=== PATIENT | male | born 1985 | race Caucasian/White ===

== ENCOUNTER 2023-12-09 17:54 | Emergency (ER) | payer BC, SELFPAY ==
[2023-12-09 17:56] VITALS: BP 155/90
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
== END 2023-12-09 19:15 | disposition home or self-care (01) ==
LOC: EMR 17:54
PROVIDERS: EMERGENCY PHYSICIAN Emergency Medicine; FAMILY PHYSICIAN Family Medicine
DX: S05.12XA Contusion of eyeball and orbital tissues, left eye, initial encounter (principal); X58.XXXA Exposure to other specified factors, initial encounter; Q05.9 Spina bifida, unspecified; Z87.440 Personal history of urinary (tract) infections; Z98.2 Presence of cerebrospinal fluid drainage device
CPT/HCPCS: 99282

== ENCOUNTER 2023-12-26 19:57 | Emergency (ER) | payer BC, SELFPAY ==
[2023-12-26 20:01] VITALS: BP 126/81
[2023-12-26 20:15] LABS: Urine Albumin Negative (Neg - Trace); Urine Bilirubin Negative (Negative); Urine Character Slightly Cloudy (Clear); Urine Color Yellow; Urine Glucose Negative (Negative); Urine Ketone Negative (Negative); Urine Leukocyte 2+ (Negative); Urine Nitrite Positive (Negative); Urine Occult Blood Trace (Negative); Urine Specific Gravity 1.015 (<1.030); Urine Urobilinogen Negative (Neg - 1+)
[2023-12-26 20:24] LABS: Urine Bacteria Many (Negative); Urine Red Blood Cell 0-2 /HPF (0-2); Urine White Cell 16-20 /HPF (0-5)
[2023-12-26] MEDS: TORADOL 15 MG IV (21:19)
[2023-12-26] MEDS: NSS 500 IV (21:19)
[2023-12-26 21:27] LABS: % Basophils 0.5 % (0-2); % Eosinophils 3.1 % (0-6); % Immature Granulocytes 0.6 % (0-0.5); % Lymphocytes 38.5 % (20.5-51.1); % Monocytes 7.7 % (1.7-9.3); % Neutrophils 49.6 % (42.2-75.2); Absolute Eosinophils 0.2 10^3/uL (0-0.7); Absolute Lymphocytes 2.4 10^3/uL (1.2-3.4); Absolute Monocytes 0.5 10^3/uL (0.1-0.6); Absolute Neutrophils 3.1 10^3/uL (1.4-6.5); Hematocrit 30.5 % (39.0-52.0); Hemoglobin 10.9 g/dL (13.0-18.0); Mean Corp Hgb Conc. 35.7 g/dL (33.0-37.0); Mean Corpuscular Hgb 27.7 pg (27.0-31.0); Mean Corpuscular Volume 77.6 fL (80.0-94.0); Nucleated Red Blood Cells % 0 % (-); Platelet Count 238 10^3/uL (130-400); Red Blood Cell Count 3.93 10^6/uL (4.70-6.10); Red Cell Dist. Width 15.1 % (11.5-14.5); White Blood Cell Count 6.2 10^3/uL (4.8-10.8)
[2023-12-26 21:46] LABS: Blood Urea Nitrogen 16 mg/dl (9-20); Calcium 9.8 mg/dl (8.4-10.2); Carbon Dioxide 29 mmol/L (22-30); Chloride 102 mmol/L (98-107); Glucose 116 mg/dl (70-99); Potassium 4.2 mmol/L (3.5-5.1); Sodium 137 mmol/L (135-145); eGFR > 60.00
[2023-12-26] MEDS: DILAUDID 0.5 MG IV (22:26)
[2023-12-26] MEDS: MACROBID 100 MG PO (23:01)
--- NOTE | 2023-12-26 23:06 | ED.GENMED ---
History of Present Illness
General
Chief Complaint: Flank Pain
Source: patient and family
Exam Limitations: none
Time Seen by Provider: 12/26/23 20:25
Nursing documentation reviewed up to this point in time: agreed with
Travel History
Have you had any contact with someone who has COVID-19?: No
Do you have any symptoms of coronavirus? Fever > 100 degrees, chills, cough, shortness of breath, sore throat, loss of taste or smell, muscle aches, or headache?: No
History of Present Illness
History of Present Illness:
38-year-old male with past medical history of spina bifida with AIRCRAFT MAINTENANCE SUPERVISOR shunt and hydrocephalus, neurogenic bladder presenting to the emergency department today with concerns of urinary symptoms and left-sided flank pain over the past day and a half.
Denies any fevers nausea vomiting systemic symptoms. Denies any chest pain shortness of breath.
Past History
Past History
ED Past Medical History: Other (Spina bifida, hydrocephalus, UTIs, microscopic colitis) and Other (Sepsis secondary to UTI with E. coli ESBL May 2021)
ED Past Surgical History: Other (AIRCRAFT MAINTENANCE SUPERVISOR shunt, spinal surgery, hernia repair, prosthetic bladder sphincter)
Social History
Tobacco: Non-smoker
Alcohol: Occasional
Drug: None
Personal: Single
Living: with family
Employment: Employed
Family History
Family History: Other (Noncontributory)
Review of Systems
Review of Systems
Allergies reviewed?: Yes
All Other Systems: ROS reviewed and negative except as documented in HPI and ROS
Phy Exam
Physical Exam
Physical Exam:
GENERAL: Alert , in no apparent distress
EYE: pupils equal and reactive
NECK: Supple, no significant adenopathy.
ENT: o/p clr, mmm.
CARDIAC: Regular rate and rhythm .
LUNGS: Clear breath sounds bilaterally, no acute respiratory distress, no wheezes/rales/rhonchi
ABDOMEN: Soft, without focal tenderness, no r/g, no cvat
NEUROLOGICAL: Alert and oriented, no focal neuro deficits
SKIN: Warm and dry, skin intact.
MUSCULOSKELETAL: No edema, well perfused.
PSYCH: Normal and appropriate interaction.
Course
Orders/Labs/Results
Orders:
Orders
12/26/23 20:08
Urinalysis Reflex To Culture Urgent
Date Specimen was Collected: 12/26/23
Time Specimen was Collected: 20:04
Urine Microscopic Reflex Cult Urgent
Urine Culture Urgent
MARIE Source: U
Specimen Description:
Date Specimen was Collected: 12/26/23
Time Specimen was Collected: 20:04
12/26/23 21:00
0.9% Sodium Chloride 500 ml [Nss] 500 ml IV BOLUS
Ketorolac [Toradol] 15 mg IV NOW STA
12/26/23 21:01
CT Abd/pel Without Iv Or Oral Urgent
Comment:
Reason For Exam: left flank pain
12/26/23 21:21
Basic Metabolic Panel Urgent
Complete Blood Count/With Diff Urgent
12/26/23 22:23
HYDROmorphone [Dilaudid] 0.5 mg IV NOW STA
12/26/23 22:34
Nitrofurantoin Monohydrate [Macrobid] 100 mg PO NOW STA
Abnormal Lab Results
12/26/23 12/26/23
20:08 21:21
RBC 3.93 L 10^6/uL
(4.70-6.10)
Hgb 10.9 L g/dL
(13.0-18.0)
Hct 30.5 L %
(39.0-52.0)
MCV 77.6 L fL
(80.0-94.0)
RDW 15.1 H %
(11.5-14.5)
Immature Gran % 0.6 H %
(0-0.5)
Glucose 116 H mg/dl
(70-99)
Ur Occult Blood Reflex Trace A
(Negative)
Urine Nitrite (Reflex) Positive A
(Negative)
Leukocyte Esterase Rfl 2+ A
(Negative)
Urine WBC (Reflex) 16-20 A /HPF
(0-5)
Urine Bacteria (Reflex) Many A
(Negative)
12/26/23 21:21
12/26/23 21:21
Vital Signs
Initial and Last Documented VS:
Initial Vital Signs
Temp Pulse Resp BP Pulse Ox
98.1 F 69 18 126/81 99
12/26/23 20:01 12/26/23 20:01 12/26/23 20:01 12/26/23 20:01 12/26/23 20:01
Last Documented Vital Signs
Temp Pulse Resp BP Pulse Ox
98.1 F 62 16 130/75 99
12/26/23 20:01 12/26/23 23:45 12/26/23 23:45 12/26/23 23:45 12/26/23 23:45
MDM/Problems Addressed
MDM/Problems Addressed:
38-year-old male presenting to the emergency department today with concerns of left-sided flank pain and urinary symptoms over the past 2 days. Upon arrival vital signs are normal very minimal discomfort to the left flank area labs obtained without
acute abnormalities no white count urinalysis appears to be consistent with UTI CT scan was performed to rule out stone no signs of calculus or hydronephrosis. No acute abnormalities on CT scan. Plan for treatment of urinary tract infection.
Previous cultures indicating Macrobid as an appropriate medication patient was started on this medication but otherwise stable for outpatient management.
*Critical Care Note
Total Time (30-74mins, 75-104mins- exclusive of procedures): Not Applicable
ED Attending Note
-
Portions of this chart may have been created with voice recognition software.� Occasional wrong word or��sound alike� substitutions may have occurred due to the inherent limitations of voice recognition software.
Discharge Plan
Departure
Patient Disposition: Home (Routine Discharge)
Date of Disposition: 12/26/23
Time of Disposition: 23:07
Patient with high blood pressure during this ER visit?: No
Condition: Good
Covid-19: Not Applicable
Discharge Problem:
Acute UTI
Instructions: Urinary Tract Infection, Adult (DC)
Prescriptions:
New
nitrofurantoin monohyd/m-cryst [Macrobid] 100 mg capsule
100 mg PO Q12H 7 Days Qty: 14 0RF
tramadol 50 mg tablet
50 mg PO Q6H PRN (Reason: Pain) Qty: 7 0RF
No Action
lisinopril 10 MG tablet
10 mg PO DAILY
Viberzi 75 mg Tablet
75 mg PO DAILYPRN PRN (Reason: ibs symptoms)
Ubrelvy 50 mg Tablet
50 mg PO DAILYPRN PRN (Reason: migraines)
cetirizine [Zyrtec] 10 mg Tablet
10 mg PO DAILY
famotidine [Pepcid] 20 mg Tablet
20 mg PO DAILYPRN PRN (Reason: reflux)
dicyclomine 20 MG tablet
20 mg PO QIDPRN PRN (Reason: abdominal pain cramping)
alprazolam 0.25 mg tablet
0.25 mg PO Q6H PRN (Reason: ANXIETY)
Patient Comments:
12/27/2022: LAST FILLED 12/04/22, 20 TABS FOR 10 DAYS FROM [facility]#[id number]
ascorbic acid (vitamin C) [Vitamin C] 1,000 mg Tablet
1,000 mg PO DAILY
cyanocobalamin (vitamin B-12) [Vitamin B-12] 500 mcg Tablet
500 mcg PO DAILY
amoxicillin-pot clavulanate 875-125 mg Tablet
1 tab PO BID
Rx Instructions:
has two days left - did not take 03/13
ferrous sulfate 325 mg (65 mg iron) Tablet
325 mg PO DAILY
naproxen 500 mg tablet
500 mg PO BID PRN (Reason: mild pain)
tramadol 50 mg Tablet
50 mg PO BID PRN (Reason: moderate pain) Qty: 6 0RF
pantoprazole [Protonix] 40 mg tablet,delayed release (DR/EC)
40 mg PO DAILY Qty: 14 0RF
metoprolol succinate 25 mg Tablet Extended Release 24 Hr
25 mg PO DAILY
nitrofurantoin monohyd/m-cryst [Macrobid] 100 mg capsule
100 mg PO BID Qty: 14 0RF
sucralfate [Carafate] 1 gram tablet
1 g PO QID Qty: 60 0RF
cephalexin 500 mg capsule
500 mg PO BID 7 Days Qty: 14 0RF
pantoprazole [Protonix] 40 mg tablet,delayed release (DR/EC)
40 mg PO BID Qty: 30 0RF
tramadol 100 mg tablet
100 mg PO Q6H PRN (Reason: pain) Qty: 20 0RF
sulfamethoxazole-trimethoprim [Bactrim DS] 800-160 mg tablet
1 tab PO BID Qty: 14 0RF
tramadol 50 mg tablet
50 - 100 mg PO Q8H PRN (Reason: Pain) Qty: 10 0RF
sulfamethoxazole-trimethoprim [Bactrim DS] 800-160 mg tablet
1 tab PO Q12H Qty: 14 0RF
Referrals:
Harmeet Obregon MD [Family Provider] -
Activity Restrictions/Additional Instructions:
You came to emergency department today with concerns of flank pain and urinary symptoms. You are found to have a urinary tract infection. Please take Macrobid twice daily for the next 7 days. Follow-up very closely as an outpatient with a primary
care doctor or urologist for reassessment. Return to the emergency department immediately for any worsening, new or concerning symptoms.
Interventions
Interventions:
*Risk Screen - Suicide Last Done: 12/26/23 20:01
*General Assessment Last Done: 12/26/23 20:01
*Neglect/Abuse Screening Last Done: 12/26/23 20:01
ED- Fall Risk Assessment Last Done: 12/26/23 22:15
*ED COVID-19 Vaccine History Last Done: 12/26/23 20:01
*Nursing Disposition Last Done: 12/26/23 23:46
[place]-Cqogjo-Yygxcclqrq Assessment Last Done: 12/26/23 22:15
ED-Male Genitourinary Assessment Last Done: 12/26/23 22:15
Discharge Date and Time
Discharge Date/Time: 12/26/23 23:20
[2023-12-26 23:45] VITALS: BP 130/75
== END 2023-12-26 23:20 | disposition home or self-care (01) ==
LOC: EMR 19:57
PROVIDERS: Physician Assistant; Surgery; EMERGENCY PHYSICIAN Emergency Medicine; FAMILY PHYSICIAN Family Medicine
DX: N39.0 Urinary tract infection, site not specified (principal); Q05.9 Spina bifida, unspecified; N31.9 Neuromuscular dysfunction of bladder, unspecified; Z87.440 Personal history of urinary (tract) infections; Z98.2 Presence of cerebrospinal fluid drainage device
CPT/HCPCS: 99284; 96374; 96375; 96361; 74176; 80048; 81003; 81015; 85025; 87071; 87086; 87186

== ENCOUNTER 2024-01-24 07:55 | Emergency (ER) | payer BC, SELFPAY ==
[2024-01-24 07:57] VITALS: BP 106/66
[2024-01-24 08:59] VITALS: BMI 23.6
[2024-01-24] MEDS: TORADOL 15 MG IV (09:19)
--- NOTE | 2024-01-24 09:19 | ED.GENMED ---
Addendum entered and electronically signed by Lorraine Schofield PA-C 01/26/24 08:09:
Urine culture preliminarily E. coli, patient is on antibiotics, pending sensitivities
Original Note:
History of Present Illness
General
Chief Complaint: Flank Pain
Time Seen by Provider: 01/24/24 08:56
Travel History
Have you had any contact with someone who has COVID-19?: No
Do you have any symptoms of coronavirus? Fever > 100 degrees, chills, cough, shortness of breath, sore throat, loss of taste or smell, muscle aches, or headache?: No
History of Present Illness
History of Present Illness:
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 Yesterday. He reports
that over the weekend he was mountain biking and felt as though his foot felt strange but denies any falls or injuries. He is able to ambulate on the foot. States the left flank pain feels different from prior UTIs and pyelonephritis. Denies any
fevers or chills.
Past History
Past History
ED Past Medical History: Other (Spina bifida, hydrocephalus, UTIs, microscopic colitis) and Other (Sepsis secondary to UTI with E. coli ESBL May 2021)
ED Past Surgical History: Other (BINDING FOLDER MACHINE shunt, spinal surgery, hernia repair, prosthetic bladder sphincter)
Social History
Tobacco: Non-smoker
Alcohol: Occasional
Drug: None
Personal: Single
Living: with family
Employment: Employed
Family History
Family History: Other (Noncontributory)
Review of Systems
Review of Systems
Allergies reviewed?: Yes
All Other Systems: ROS reviewed and negative except as documented in HPI and ROS
Phy Exam
Physical Exam
Physical Exam:
GEN: Well appearing, NAD, WDWN
HEENT: Oral mucosa moist, no scleral icterus
Cardiac: Regular rate
Lung: No respiratory distress, no tachypnea
Abdomen: Left upper quadrant tenderness elicited on exam, no flank tenderness positive CVA tenderness elicited, no rigidity
MSK: Left foot appears atraumatic. There is mild swelling and erythema to the left first MTP joint with exquisite tenderness to palpation, no ankle swelling.
Skin: Good color, no pallor or jaundice, no rashes
Neuro: AO x3, moves all extremities freely
Psych: Calm, cooperative
Course
Orders/Labs/Results
Orders:
Orders
01/24/24 09:15
Ketorolac [Toradol] 15 mg .ROUTE .STK-MED ONE
01/24/24 09:18
Complete Blood Count/With Diff Urgent
Comprehensive Metabolic Panel Urgent
Lipase Urgent
Urinalysis Reflex To Culture Urgent
Date Specimen was Collected: 01/24/24
Time Specimen was Collected: 09:17
Urine Microscopic Reflex Cult Urgent
Urine Culture Urgent
MARIE Source: U
Specimen Description:
Date Specimen was Collected: 01/24/24
Time Specimen was Collected: 09:17
CR Foot - Left Min 3 Views Urgent
Comment:
Reason For Exam: foot pain
01/24/24 09:19
CT Abd/pel Without Iv Or Oral Urgent
Comment:
Reason For Exam: L flank pain
Ketorolac [Toradol] 15 mg IV NOW STA
Ketorolac [Toradol] 15 mg IV NOW STA
01/24/24 10:21
Oxycodone [Roxicodone] 5 mg PO NOW STA
Abnormal Lab Results
01/24/24
09:18
RBC 3.32 L 10^6/uL
(4.70-6.10)
Hgb 9.6 L g/dL
(13.0-18.0)
Hct 28.0 L %
(39.0-52.0)
RDW 15.5 H %
(11.5-14.5)
Sodium 133 L mmol/L
(135-145)
Glucose 102 H mg/dl
(70-99)
AST 16 L U/L
(17-59)
Ur Occult Blood Reflex 1+ A
(Negative)
Urine Nitrite (Reflex) Positive A
(Negative)
Leukocyte Esterase Rfl 2+ A
(Negative)
Urine WBC (Reflex) >100 A /HPF
(0-5)
Urine Bacteria (Reflex) Many A
(Negative)
01/24/24 09:18
01/24/24 09:18
Vital Signs
Initial and Last Documented VS:
Initial Vital Signs
Temp Pulse Resp BP Pulse Ox
98.3 F 79 18 106/66 99
01/24/24 07:57 01/24/24 07:57 01/24/24 07:57 01/24/24 07:57 01/24/24 07:57
Last Documented Vital Signs
Temp Pulse Resp BP Pulse Ox
98.3 F 80 18 118/78 99
01/24/24 07:57 01/24/24 10:59 01/24/24 10:59 01/24/24 10:59 01/24/24 10:59
MDM/Problems Addressed
MDM/Problems Addressed:
Patient with no evidence of UTI, flank pain is most likely due to pyelonephritis. No evidence of ureterolithiasis. The foot pain is potentially due to gout based on the location of the first MTP joint. Will start on colchicine for this. Versus
pyelonephritis the patient does have a complex history of ESBL's, I offered admission for IV antibiotics versus discharge on Bactrim which is sensitive medication in the past, he would prefer discharge on Bactrim., Not unreasonable given his
clinical stability at this time
*Critical Care Note
Total Time (30-74mins, 75-104mins- exclusive of procedures): Not Applicable
ED Attending Note
-
Portions of this chart may have been created with voice recognition software.� Occasional wrong word or��sound alike� substitutions may have occurred due to the inherent limitations of voice recognition software.
Discharge Plan
Departure
Patient Disposition: Home (Routine Discharge)
Date of Disposition: 01/24/24
Time of Disposition: 10:24
Patient with high blood pressure during this ER visit?: No
Discharge Problem:
Acute pyelonephritis, Acute gout of left foot
Instructions: Gout (DC), Kidney Infection (DC)
Prescriptions:
New
sulfamethoxazole-trimethoprim [Bactrim DS] 800-160 mg tablet
1 tab PO BID Qty: 20 0RF
oxycodone 5 mg tablet
5 mg PO Q8H PRN (Reason: Pain) Qty: 8 0RF
colchicine 0.6 mg tablet
0.6 mg PO DAILY Qty: 10 0RF
Rx Instructions:
1.2mg PO once, then 0.6mg PO 1hr after; continue 0.6mg daily prn pain
No Action
lisinopril 10 MG tablet
10 mg PO DAILY
alprazolam 0.25 mg tablet
0.25 mg PO Q6HPRN PRN (Reason: ANXIETY)
Patient Comments:
12/27/2022: LAST FILLED 12/04/22, 20 TABS FOR 10 DAYS FROM [facility]#[id number]
ferrous sulfate 325 mg (65 mg iron) Tablet
325 mg PO DAILY
metoprolol succinate 25 mg Tablet Extended Release 24 Hr
25 mg PO DAILY
tramadol 100 mg tablet
50 mg PO Q6HPRN PRN (Reason: moderate pain)
Referrals:
Harmeet Obregon MD [Family Provider] -
Interventions
Interventions:
*Risk Screen - Suicide Last Done: 01/24/24 09:02
*Neglect/Abuse Screening Last Done: 01/24/24 08:59
*Nursing Disposition Last Done: 01/24/24 11:00
QU-Nogsni-Iscjmutbtc Assessment Last Done: 01/24/24 08:59
ED-Male Genitourinary Assessment Last Done: 01/24/24 08:59
Discharge Date and Time
Discharge Date/Time: 01/24/24 11:02
Print Language: TAMAZIGHT
[2024-01-24 09:29] LABS: Urine Albumin Trace (Neg - Trace); Urine Bilirubin Negative (Negative); Urine Character Clear (Clear); Urine Color Yellow; Urine Glucose Negative (Negative); Urine Ketone Negative (Negative); Urine Leukocyte 2+ (Negative); Urine Nitrite Positive (Negative); Urine Occult Blood 1+ (Negative); Urine Urobilinogen Negative (Neg - 1+)
[2024-01-24 09:39] LABS: % Basophils 0.3 % (0-2); % Eosinophils 2.6 % (0-6); % Immature Granulocytes 0.5 % (0-0.5); % Monocytes 8.9 % (1.7-9.3); % Neutrophils 65.7 % (42.2-75.2); Absolute Eosinophils 0.2 10^3/uL (0-0.7); Absolute Lymphocytes 1.3 10^3/uL (1.2-3.4); Absolute Monocytes 0.5 10^3/uL (0.1-0.6); Absolute Neutrophils 3.8 10^3/uL (1.4-6.5); Hemoglobin 9.6 g/dL (13.0-18.0); Mean Corp Hgb Conc. 34.3 g/dL (33.0-37.0); Mean Corpuscular Hgb 28.9 pg (27.0-31.0); Mean Corpuscular Volume 84.3 fL (80.0-94.0); Mean Platelet Volume 9.4 fL (7.4-10.4); Nucleated Red Blood Cells % 0 % (-); Platelet Count 211 10^3/uL (130-400); Red Blood Cell Count 3.32 10^6/uL (4.70-6.10); Red Cell Dist. Width 15.5 % (11.5-14.5); White Blood Cell Count 5.7 10^3/uL (4.8-10.8)
[2024-01-24 09:43] LABS: ALT (SGPT) 19 U/L (0-50); AST (SGOT) 16 U/L (17-59); Albumin 4.3 g/dl (3.5-5.0); Alkaline Phosphatase 66 U/L (38-126); Blood Urea Nitrogen 13 mg/dl (9-20); Calcium 9.5 mg/dl (8.4-10.2); Carbon Dioxide 25 mmol/L (22-30); Chloride 105 mmol/L (98-107); Estimated Creatinine Clearance > 125 ml/min; Glucose 102 mg/dl (70-99); Lipase 34 U/L (23-300); Potassium 4.4 mmol/L (3.5-5.1); Sodium 133 mmol/L (135-145); Total Bilirubin 0.5 mg/dl (0.2-1.3); Total Protein 6.8 g/dl (6.3-8.2); eGFR > 60.00
[2024-01-24 09:53] LABS: Urine Bacteria Many (Negative); Urine Red Blood Cell 0-2 /HPF (0-2)
[2024-01-24 09:54] LABS: Urine Mucus Few; Urine White Cell >100 /HPF (0-5)
[2024-01-24] MEDS: ROXICODONE 5 MG PO (10:34)
[2024-01-24 10:59] VITALS: BP 118/78
== END 2024-01-24 11:02 | disposition home or self-care (01) ==
LOC: EMR 07:55
PROVIDERS: Physician Assistant; EMERGENCY PHYSICIAN Emergency Medicine; FAMILY PHYSICIAN Family Medicine
DX: N10 Acute pyelonephritis (principal); M10.9 Gout, unspecified; Z98.2 Presence of cerebrospinal fluid drainage device
CPT/HCPCS: 99285; 96374; 73630; 74176; 80053; 81003; 81015; 83690; 85025; 87077; 87086; 87186

== ENCOUNTER 2024-01-27 22:32 | Inpatient (IN) | payer BC, SELFPAY ==
[2024-01-27 16:01] VITALS: BP 104/60
[2024-01-27 16:13] LABS: % Basophils 0.5 % (0-2); % Eosinophils 2.9 % (0-6); % Immature Granulocytes 0.5 % (0-0.5); % Lymphocytes 29.4 % (20.5-51.1); % Monocytes 4.8 % (1.7-9.3); % Neutrophils 61.9 % (42.2-75.2); Absolute Eosinophils 0.2 10^3/uL (0-0.7); Absolute Lymphocytes 1.6 10^3/uL (1.2-3.4); Absolute Monocytes 0.3 10^3/uL (0.1-0.6); Absolute Neutrophils 3.4 10^3/uL (1.4-6.5); Hematocrit 29.7 % (39.0-52.0); Hemoglobin 10.2 g/dL (13.0-18.0); Mean Corp Hgb Conc. 34.3 g/dL (33.0-37.0); Mean Corpuscular Volume 84.4 fL (80.0-94.0); Mean Platelet Volume 9.4 fL (7.4-10.4); Nucleated Red Blood Cells % 0 % (-); Platelet Count 268 10^3/uL (130-400); Red Blood Cell Count 3.52 10^6/uL (4.70-6.10); White Blood Cell Count 5.5 10^3/uL (4.8-10.8)
[2024-01-27 16:32] LABS: ALT (SGPT) 20 U/L (0-50); AST (SGOT) 20 U/L (17-59); Albumin 4.7 g/dl (3.5-5.0); Alkaline Phosphatase 71 U/L (38-126); Blood Urea Nitrogen 26 mg/dl (9-20); Carbon Dioxide 24 mmol/L (22-30); Chloride 103 mmol/L (98-107); Glucose 168 mg/dl (70-99); Sodium 140 mmol/L (135-145); Total Bilirubin 0.5 mg/dl (0.2-1.3); Total Protein 7.2 g/dl (6.3-8.2); eGFR > 60.00
--- NOTE | 2024-01-27 20:47 | ED.GENMED ---
History of Present Illness
General
Chief Complaint: Abnormal Lab Value
Source: patient and records
Exam Limitations: none
Time Seen by Provider: 01/27/24 20:09
Nursing documentation reviewed up to this point in time: agreed with
Travel History
Have you had any contact with someone who has COVID-19?: No
Do you have any symptoms of coronavirus? Fever > 100 degrees, chills, cough, shortness of breath, sore throat, loss of taste or smell, muscle aches, or headache?: No
History of Present Illness
History of Present Illness:
38-year-old male with a past medical history of sciatica bifida, neurogenic bladder (self catheterizes), SUPERVISOR ACCOUNTS RECEIVABLE shunt who presents to the emergency department for evaluation of suprapubic pressure consistent with prior UTIs; he was called back because
of ESBL E. coli growing out on urine culture. Patient was seen 01/24/2024 in this emergency room with his typical UTI symptoms which include suprapubic pressure and some increased sensation of the need for self-catheterization�he catheterizes via
suprapubic tract. He was seen in the emergency room and started on Bactrim which he has been taking without any improvement in his symptoms. Today received a call that his urine culture grew back positive for ESBL E. coli and needed to come back
for IV antibiotics. Only new symptom in the interim is a subjective fever today although he says his temperature was normal he had subjective chills and fever.
Past History
Past History
ED Past Medical History: Other (Spina bifida, hydrocephalus, UTIs, microscopic colitis) and Other (Sepsis secondary to UTI with E. coli ESBL May 2021)
ED Past Surgical History: Other (SUPERVISOR ACCOUNTS RECEIVABLE shunt, spinal surgery, hernia repair, prosthetic bladder sphincter)
Social History
Tobacco: Non-smoker
Alcohol: Occasional
Drug: None
Personal: Single
Living: with family
Employment: Employed
Family History
Family History: Other (Noncontributory)
Review of Systems
Review of Systems
All Other Systems: ROS reviewed and negative except as documented in HPI and ROS
Constitutional: Reports fever, fatigue and chills
Respiratory: Denies trouble breathing
Cardiac: Denies chest pain
ABD/GI: Reports abdominal pain; Denies nausea or vomiting
: Reports frequency; Denies flank pain
Musculoskeletal: Denies neck pain or back pain
Neurological: Denies headache
Phy Exam
Physical Exam
Physical Exam:
General: Awake, alert, oriented x3; no acute distress
Head: Normocephalic, atraumatic
Eyes: Conjunctiva normal, sclera anicteric
Throat: Airway intact, handling secretions
Neck: Trachea midline, supple without meningismus
Lungs: Clear to auscultation bilaterally, no wheezing, rales, rhonchi
Heart: Regular rate and rhythm, no murmurs, gallops, or rubs
Abd: Soft, non distended, very mild suprapubic tenderness
Neuro: Cranial nerves grossly intact, speech fluid
Skin: no rash
Extremities: Warm and well-perfused
Scores
Heart Failure Risk
Heart Failure Risk Score: Not Applicable
Heart Score for Chest Pain Patients
STEMI patient?: Not applicable
Withdrawal Assessment of Alcohol
Withdrawal Assessment Completed?: Not applicable
Course
Orders/Labs/Results
Orders:
Orders
01/27/24 16:07
Complete Blood Count/With Diff Urgent
Comprehensive Metabolic Panel Urgent
01/27/24 20:32
INFECTIOUS DISEASE CONSULT Routine
Consulting Provider: Clau Tariq
Was physician already notified: Yes
01/27/24 20:33
Piperacillin/Tazo 3.375 Gram [Zosyn] 3.375 gram in 50 ml IV NOW
01/27/24 20:38
HYDROmorphone [Dilaudid] 1 mg IV NOW STA
01/27/24 20:45
Blood Culture Q30M
MARIE Source: Blood/Venous
Specimen Description:
01/27/24 21:15
Blood Culture Q30M
MARIE Source: Blood/Venous
Specimen Description:
Abnormal Lab Results
01/27/24
16:07
RBC 3.52 L 10^6/uL
(4.70-6.10)
Hgb 10.2 L g/dL
(13.0-18.0)
Hct 29.7 L %
(39.0-52.0)
RDW 15.0 H %
(11.5-14.5)
BUN 26 H mg/dl
(9-20)
Glucose 168 H mg/dl
(70-99)
01/27/24 16:07
01/27/24 16:07
Vital Signs
Initial and Last Documented VS:
Initial Vital Signs
Temp Pulse Resp BP Pulse Ox
36.9 C 71 16 104/60 98
01/27/24 16:01 01/27/24 16:01 01/27/24 16:01 01/27/24 16:01 01/27/24 16:01
Last Documented Vital Signs
Temp Pulse Resp BP Pulse Ox
36.9 C 71 16 104/60 98
01/27/24 16:01 01/27/24 16:01 01/27/24 16:01 01/27/24 16:01 01/27/24 16:01
MDM/Problems Addressed
Differential Diagnosis Includes:
UTI
MDM/Problems Addressed:
38-year-old male returns�diagnosed with UTI few days ago and called back due to resistant bacteria as above. Reviewed culture and sensitivity�urine culture positive for ESBL E. coli resistant to oral antibiotics. Sensitive to Zosyn we will place
an IV send labs, blood cultures and treat with IV Zosyn. Discussed with infectious disease for consultation. Discussed with hospitalist for admission.
Chronic conditions affecting care:
Spina bifida
*Pulse Oximetry
Patient hypoxic: no
*Critical Care Note
Total Time (30-74mins, 75-104mins- exclusive of procedures): Not Applicable
Data Reviewed
Review of Other/Old Records Reveals: Labs, Records, Testing (Urine culture) and Discharge Summary
Source: patient and records
Patient Management
Discussion with other providers: Hospitalist (Discussed with hospitalist) and Athletic Trainer (Discussed with infectious disease)
Escalation/DeEscalation of care consider admission/obs:
Admission indicated
ED Attending Note
-
Portions of this chart may have been created with voice recognition software.� Occasional wrong word or��sound alike� substitutions may have occurred due to the inherent limitations of voice recognition software.
Discharge Plan
Departure
Patient Disposition: Admit
Date of Disposition: 01/27/24
Time of Disposition: 20:52
Admit to doctor: Johanay
Presentation/result/management discussed w/ accepting MD/DO: Hospitalist
Discharge Problem:
Acute UTI
Prescriptions:
No Action
lisinopril 10 MG tablet
10 mg PO DAILY
alprazolam 0.25 mg tablet
0.25 mg PO Q6HPRN PRN (Reason: ANXIETY)
Patient Comments:
12/27/2022: LAST FILLED 12/04/22, 20 TABS FOR 10 DAYS FROM [id number]
ferrous sulfate 325 mg (65 mg iron) Tablet
325 mg PO DAILY
metoprolol succinate 25 mg Tablet Extended Release 24 Hr
25 mg PO DAILY
tramadol 100 mg tablet
50 mg PO Q6HPRN PRN (Reason: moderate pain)
sulfamethoxazole-trimethoprim [Bactrim DS] 800-160 mg tablet
1 tab PO BID Qty: 20 0RF
oxycodone 5 mg tablet
5 mg PO Q8H PRN (Reason: Pain) Qty: 8 0RF
colchicine 0.6 mg tablet
0.6 mg PO DAILY Qty: 10 0RF
Rx Instructions:
1.2mg PO once, then 0.6mg PO 1hr after; continue 0.6mg daily prn pain
Referrals:
Harmeet Obregon MD [Family Provider] -
Interventions
Interventions:
*Risk Screen - Suicide Last Done: 01/27/24 19:50
*General Assessment Last Done: 01/27/24 19:50
*Neglect/Abuse Screening Last Done: 01/27/24 19:50
*ED COVID-19 Vaccine History Last Done: 01/27/24 16:01
Discharge Date and Time
Print Language: QATARI
--- NOTE | 2024-01-27 20:54 | HPS.HSE ---
Family Physician
-
Family Physician: Harmeet Obregon
Chief Complaint
-
Drug Resistant UTI
History of Present Illness
Patient is a 38 y/o male with a past medical history of spina bifida, hypertension, neurogenic bladder (with self-catheterization every 3 hours), and prior urinary tract infections who presents for left flank pain that began on Saturday. He was
evaluated in the emergency department on Saturday and was prescribed Bactrim. Additionally, he was prescribed colchicine for gout in his left foot and states that this pain has resolved. He has been taking Bactrim as prescribed but denies an
improvement in the flank pain. Today he received a call from the hospital to inform him that the bacteria found in his urine culture is not susceptible to Bactrim with directions to return to the emergency department. He admits to intermittent
chills today but denies fever.
Medical History
Past Medical History
Past Medical History: Reports Other
Additional Past Medical History:
Spina Bifida with Hydrocephalus and Urinary Incontinence
Essential Hypertension
Past Surgical History: Reports Other
Additional Past Surgical History:
DIESEL PILE HAMMER OPERATOR Shunt (multiple revisions - last at 18yo)
Artificial Urinary Sphincter Placement (multiple)
Creation of Augmented Bladder (06/2019)
Inguinal Herniorrhaphies
Social History
Tobacco: Non-smoker
Alcohol: None
Family History
Family History: Not pertinent
Allergies / Home Medications
Allergies reflects when Allergies were last updated in [facility].
Home Medications with original date entered in [facility]
Allergy/Medication List:
Allergies
Allergy/AdvReac Type Severity Reaction Status Date / Time
latex Allergy rash, Verified 01/27/24 16:03
respiratory
Home Medications
lisinopril 10 mg tablet 10 mg PO DAILY Blood pressure 05/14/21
alprazolam 0.25 mg tablet 0.25 mg PO Q6HPRN PRN ANXIETY 12/27/22
ferrous sulfate 325 mg (65 mg iron) tablet 325 mg PO DAILY Supplement 03/13/23
metoprolol succinate 25 mg tablet,extended release 24 hr 25 mg PO DAILY 06/06/23
colchicine 0.6 mg tablet 0.6 mg PO DAILY #10 tabs 01/24/24
sulfamethoxazole 800 mg-trimethoprim 160 mg tablet (Bactrim DS) 1 tab PO BID #20 tabs 01/24/24
oxycodone 5 mg tablet 5 mg PO Q8H PRN moderate to severe pain 01/27/24
tramadol 50 mg tablet 50 mg PO Q8H PRN moderate pain 01/27/24
Review of Systems
-
A 12 point ROS was completed and negative except as noted: Yes
Constitutional: Reports Chills; Denies Fever
Respiratory: Denies Cough or Trouble Breathing
Cardiac: Denies Chest Pain or Palpitations
Physical Exam
Vital Signs
Vital Signs
Temp Pulse Resp BP Pulse Ox
98.5 F 71 16 104/60 98
01/27/24 16:01 01/27/24 16:01 01/27/24 16:01 01/27/24 16:01 01/27/24 16:01
Physical Exam
General: Well Developed, Well Nourished and No Apparent Distress
HEENT: NormoCephalic, Anicteric, Moist mucous membranes and Atraumatic
Respiratory: Clear and Non Labored Respirations
Cardiac: S1/S2 and Regular Rhythm; No Murmur
GI: Soft, Non Distended, Normal Bowel Sounds and Tender (Left upper quadrant)
Rectal: Deferred by Provider
Genito-urinary: Other (Left CVA Tenderness)
Musculoskeletal: No Clubbing, No Cyanosis and No Edema
Skin: Warm and Dry; No Rash
Neuro: Awake, Alert, Oriented and Nonfocal/grossly intact
Psych: Calm
Laboratory Results
-
01/27/24 16:07
01/27/24 16:07
Laboratory Results
Total Bilirubin 0.5 mg/dl (0.2-1.3) 01/27/24 16:07
AST 20 U/L (17-59) 01/27/24 16:07
ALT 20 U/L (0-50) 01/27/24 16:07
Alkaline Phosphatase 71 U/L (38-126) 01/27/24 16:07
Data Reviewed
-
Lab Data: Labs Reviewed by me
Old Records: Reviewed
Impression/Plan
-
Complicated Urinary Tract Infection secondary to ESBL E. Coli
-Consult Infectious Disease
-Continue Ertapenem
Chronic Urinary Retention secondary to Neurogenic Bladder
-Continue intermittent straight cath
Essential Hypertension
-Continue lisinopril and metoprolol
DVT proph: Lovenox
Code Status: Full Code
[2024-01-27 20:57] VITALS: BMI 23.5
[2024-01-27 20:58] VITALS: BP 122/78
[2024-01-27] MEDS: DILAUDID 1 MG IV (21:05)
[2024-01-27] MEDS: ZOSYN 50 IV (21:05)
--- NOTE | 2024-01-27 22:01 | W.PN.UPDATE ---
Update Note
Progress Note Update
This is an addendum to the H&P written by FABIANA Menchaca on 01/27/2024.
Patient seen and examined independently with OPTOMECHANICAL ENGINEER. 38-year-old male with history of spina bifida with CONSTRUCTION ECONOMIST shunt, neurogenic bladder status post surgery who self catheterizes, multidrug-resistant ESBL E. coli, Klebsiella presenting with left flank pain
and urinary frequency. He came to the ER 2 days ago and was treated with Bactrim however urine culture shows bacteria resistant to Bactrim. Urine culture shows ESBL E. coli once again. IV fluids, ertapenem, ID consulted.
[2024-01-27 22:52] VITALS: BMI 24.4
[2024-01-27 22:53] VITALS: BP 121/74
[2024-01-27] MEDS: INVANZ 60 MG IV (23:52)
[2024-01-28] MEDS: DILAUDID 1 MG IV ×3 (00:57→09:18)
[2024-01-28 06:21] LABS: Hematocrit 28.9 % (39.0-52.0); Mean Corp Hgb Conc. 34.6 g/dL (33.0-37.0); Mean Corpuscular Volume 83.8 fL (80.0-94.0); Mean Platelet Volume 9.4 fL (7.4-10.4); Platelet Count 244 10^3/uL (130-400); Red Blood Cell Count 3.45 10^6/uL (4.70-6.10); Red Cell Dist. Width 14.9 % (11.5-14.5); White Blood Cell Count 4.8 10^3/uL (4.8-10.8)
[2024-01-28 06:47] LABS: Blood Urea Nitrogen 23 mg/dl (9-20); Calcium 9.7 mg/dl (8.4-10.2); Carbon Dioxide 25 mmol/L (22-30); Chloride 106 mmol/L (98-107); Estimated Creatinine Clearance 91 ml/min; Glucose 92 mg/dl (70-99); Potassium 4.8 mmol/L (3.5-5.1); Sodium 139 mmol/L (135-145); eGFR > 60.00
[2024-01-28 07:51] VITALS: BP 96/51
--- NOTE | 2024-01-28 08:28 | W.PN.HOSP.TC ---
Today's Communication/Plan
-
IV Ertapenem
F/U further ID recs
Assessment / Plan
Assessment / Plan
Patient is a 38 y/o male with a past medical history of spina bifida, hypertension, neurogenic bladder (with self-catheterization every 3 hours), and prior urinary tract infections who presents for left flank pain that began on Saturday. He was
evaluated in the emergency department on Saturday and was prescribed Bactrim. Additionally, he was prescribed colchicine for gout in his left foot and states that this pain has resolved
Complicated Urinary Tract Infection secondary to ESBL E. Coli
-Consult Infectious Disease
-Continue Ertapenem
Chronic Urinary Retention secondary to Neurogenic Bladder
-Continue intermittent straight cath
Essential Hypertension
-Continue lisinopril and metoprolol
Hx Spina Bifida with PATIENT ACCESS REGISTRAR shunt
DVT proph: Lovenox
Code Status: Full Code
Anticipated Discharge: 24 - 48 hours
Subjective/Interval History
-
Date of Service: January 28, 2024
continues to have left flank pain
no fevers/chills
Objective Data
-
Labs:
Laboratory Results
01/28/24
06:01
WBC 4.8
Hgb 10.0 L
Hct 28.9 L
Plt Count 244
Sodium 139
Potassium 4.8
Chloride 106
Carbon Dioxide 25
BUN 23 H
Creatinine 1.0
Glucose 92
Calcium 9.7
Vital Signs:
Vital Signs
Temp Pulse Resp BP Pulse Ox
97.7 F 56 17 96/51 97
01/28/24 07:51 01/28/24 07:51 01/28/24 07:51 01/28/24 07:51 01/28/24 07:51
I&O
01/27/24 01/28/24 01/29/24
06:59 06:59 06:59
Intake Total 920 / 920
Output Total 150 / 150
Balance 770 / 770
Review of Systems
-
History Source: Patient
All other systems: Reviewed and negative
Physical Exam
-
General: No Apparent Distress
HEENT: Moist Mucous Membranes
Respiratory: Clear to Auscultation
Cardiac: Regular Rhythm and S1/S2
GI: Soft and Nondistended
Musculoskeletal: Other (left CVA)
Skin: Negative Rash
Neuro: AO x 3
Psych: Calm
Data Reviewed
-
Diagnostic Radiology: Report Reviewed by me
Labs: Labs Reviewed by me
[2024-01-28] MEDS: ZESTRIL PO (09:05)
[2024-01-28] MEDS: FEOSOL 325 MG PO (09:06)
[2024-01-28] MEDS: TOPROL XL PO (09:06)
--- NOTE | 2024-01-28 10:03 | CON.ID ---
Consultation
-
Date/Time Consultation Requested: January 27, 20242031
Date/Time Consultation Performed: January 28, 2024 1000
Requesting Provider: Dr. William Villareal
Performing Provider: Dr. Clau Tariq
Reason for Consultation: ESBL UTI
Chief Complaint / Past History
Chief Complaint
Flank pain
History of Present Illness
38-year-old male with spina bifida, history of augmented bladder construction under the umbilicus and patient self catheterizes every 3-4 hours, recurrent ESBL E. coli UTI who has had recent multiple ER visits for urinary symptoms. He recently
developed left flank pain and went to the ER on January 23. Urine specimen collected. He was discharged on Bactrim. However the culture resulted as ESBL E. coli. Patient received a phone call to come back to the hospital for IV antibiotic. He
received Zosyn in the ER. Today patient reports no fevers or chills this time. No nausea or vomiting. He continues to have left flank pain. He has never been on chronic oral antibiotic suppression in the past.
Past History
Additional Past Medical History:
Spina bifida.
Hydrocephalus status post HEALTH SPA MANAGER shunt.
Hypertension.
Urinary incontinence with history of multiple artificial ureteral sphincters with subsequent removal.
Hx of augmented bladder construction under the umbilicus (2018) and patient self catheterizes.
Hernia repair.
Hypertension.
Recurrent ESBL- E. coli UTI
ESBL-Ecoli bacteremia x 2
Allergy History:
latex Allergy (Verified 01/27/24 16:03)
rash, respiratory
Medications Reviewed: Yes
Current Antibiotics:
Zosyn
Social History
Tobacco: Non-Smoker
Alcohol: None
Drug: None
Family History
Family History: Not Pertinent
Review of Systems
Review of Systems
General: Negative Fever, Chills or Change in Appetite
HEENT: Negative Headache or Pharyngitis
Respiratory: Negative Dyspnea or Cough
Genital / Urological: Flank Pain
Endocrine: Negative Weakness
Skin / Hair / Nails: Negative Rash
Neurological: Negative Headache or Dizziness
Vital Signs
Temp Pulse Resp BP Pulse Ox
97.7 F 56 17 96/51 97
01/28/24 07:51 01/28/24 09:06 01/28/24 07:51 01/28/24 09:06 01/28/24 07:51
Physical Exam
Physical Exam
Constitutional: No Acute Distress and Comfortable
Cardiovascular: Regular Rate and S1/S2
Pulmonary: Clear
Gastrointestinal: Soft, Non Tender, Non Distended and Normal Bowel Sounds
Genito-Urinary: Negative CVA Tenderness
Neurological: AO x 3
Lab / Diagnostic Study Results
01/28/24 06:01
01/28/24 06:01
Abs Immat Gran (auto) 0.0 10^3/uL (0-0.05) 01/27/24 16:07
Absolute Neuts (auto) 3.4 10^3/uL (1.4-6.5) 01/27/24 16:07
Absolute Lymphs (auto) 1.6 10^3/uL (1.2-3.4) 01/27/24 16:07
Absolute Monos (auto) 0.3 10^3/uL (0.1-0.6) 01/27/24 16:07
Absolute Basos (auto) 0.0 10^3/uL (0-0.2) 01/27/24 16:07
Immature Gran % 0.5 % (0-0.5) 01/27/24 16:07
Neutrophils % 61.9 % (42.2-75.2) 01/27/24 16:07
Lymphocytes % 29.4 % (20.5-51.1) 01/27/24 16:07
Monocytes % 4.8 % (1.7-9.3) 01/27/24 16:07
Eosinophils % 2.9 % (0-6) 01/27/24 16:07
Basophils % 0.5 % (0-2) 01/27/24 16:07
Microbiology Results
Micro:
01/27/24 20:50 Blood Culture - Pending
Blood/Venous
01/27/24 21:08 Blood Culture - Pending
Blood/Venous
01/24/24 CT a/p: No acute findings within the abdomen or pelvis. No evidence for nephrolithiasis or objective uropathy. Postoperative findings compatible with prior right hemicolectomy with anastomosis within the right upper quadrant. Moderate
amount stool within the proximal colon.
Assessment / Plan
# Recurrent symptomatic UTI with ESBL-E. coli
# hx augmented bladder and pt self-catherizes via umbilicus
- plan to treat with Ertapenem 1g IV q24 x 10 days followed by chronic suppression with Macrobid 100mg po qd ( if bacteria develops resistance to Macrobid, then stop).
- Follow blood cx's. - If negative, place midline.
# Addtiional PMHx:
Spina bifida.
Hydrocephalus status post HEALTH SPA MANAGER shunt.
Hypertension.
Urinary incontinence with history of multiple artificial ureteral sphincters with subsequent removal.
Hx of augmented bladder construction under the umbilicus (2019) and patient self catheterizes.
Hernia repair.
Hypertension.
Recurrent ESBL- E. coli UTI
ESBL-Ecoli bacteremia x 2
[2024-01-28] MEDS: DILAUDID 0.5 MG IV ×3 (14:30→22:07)
[2024-01-28] MEDS: COLCHICINE 0.599999999999999978 MG PO (14:36)
[2024-01-28 15:15] VITALS: BP 98/61
--- NOTE | 2024-01-28 16:22 | CM ---
Initial assessment completed with patient with mother in room. Patient lives with his parents in a 2 story home with B/B on and 1/2 bath on . 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 No DME or in-home services. Patient self
catheterizes. Pharmacy-[facility] [place] and PCP is Dr. Jabier Obregon. Anticipate no needs at discharge.
[2024-01-28] MEDS: INVANZ 60 MG IV (22:06)
[2024-01-28 23:19] VITALS: BP 105/56
[2024-01-29] MEDS: DILAUDID 0.5 MG IV ×6 (02:54→20:58)
--- NOTE | 2024-01-29 08:09 | W.PN.HOSP.TC ---
Today's Communication/Plan
-
see plan
Assessment / Plan
Assessment / Plan
Patient is a 38 y/o male with a past medical history of spina bifida, hypertension, neurogenic bladder (with self-catheterization every 3 hours), and prior urinary tract infections who presents for left flank pain that began on Saturday. He was
evaluated in the emergency department on Saturday and was prescribed Bactrim. Additionally, he was prescribed colchicine for gout in his left foot and states that this pain has resolved.
CT A/P FROM prior ER visit 01/24/24
IMPRESSION:
1. No acute findings within the abdomen or pelvis.
2. No evidence for nephrolithiasis or objective uropathy.
3. Nonspecific mild splenomegaly. No focal splenic lesions.
4. Postoperative findings compatible with prior right hemicolectomy with anastomosis within the right upper quadrant. Moderate amount stool within the proximal colon.
5. Additional findings above.
Complicated Urinary Tract Infection secondary to ESBL E. Coli
-Consult Infectious Disease
-Continue Ertapenem
-midline when blood cultures neg 48 hours then DC 10 days Ertapenem per ID; post IV abx start Macrobid
-add on IV toradol PRN pain to better help with inflammation
Chronic Urinary Retention secondary to Neurogenic Bladder
-Continue intermittent straight cath
Left lower back pain likely MSK from bed
-toradol as above
-heat pack
Essential Hypertension
-Continue lisinopril and metoprolol
Hx Spina Bifida with DIETITIAN CHIEF shunt
DVT proph: Lovenox
Code Status: Full Code
Anticipated Discharge: 24 - 48 hours
Subjective/Interval History
-
Date of Service: January 29, 2024
continues to have pain flank area with new pain left lower back
no new rash or erythema
Objective Data
-
Vital Signs:
Vital Signs
Temp Pulse Resp BP Pulse Ox
98.9 F 64 20 105/56 97
04/16/24 23:19 01/28/24 23:19 01/28/24 23:19 01/28/24 23:19 01/28/24 23:19
I&O
01/28/24 01/29/24 01/30/24
06:59 06:59 06:59
Intake Total 920 / 920 1680 / 1680
Output Total 150 / 150 200 / 200
Balance 770 / 770 1480 / 1480
Review of Systems
-
History Source: Patient
All other systems: Reviewed and negative
Physical Exam
-
General: No Apparent Distress
HEENT: Moist Mucous Membranes
Respiratory: Clear to Auscultation
Cardiac: Regular Rhythm and S1/S2
GI: Soft and Nondistended
Musculoskeletal: Other (left CVA tenderness, some tenderness left lower back )
Skin: Negative Rash
Neuro: AO x 3
Psych: Calm
Data Reviewed
-
Diagnostic Radiology: Report Reviewed by me
Labs: Labs Reviewed by me
[2024-01-29 08:11] VITALS: BP 101/63
[2024-01-29] MEDS: COLCHICINE 0.599999999999999978 MG PO (09:05)
[2024-01-29] MEDS: ZESTRIL 10 MG PO (09:05)
[2024-01-29] MEDS: TOPROL XL 25 MG PO (09:07)
[2024-01-29] MEDS: FEOSOL 325 MG PO (09:07)
[2024-01-29] MEDS: TORADOL 15 MG IV (09:07)
--- NOTE | 2024-01-29 10:08 | W.PN.ID1 ---
Date of Service
Date of Service: January 29, 2024
Today's Communication
-OK to dc home when home infusion set up.
- Follow-up with me in 1 week.
Assessment / Plan
# Recurrent symptomatic UTI with ESBL-E. coli
# hx augmented bladder and pt self-catherizes via umbilicus
-Blood cx's neg to date
-Place midline
- Continue Ertapenem 1g IV q24 through 02/06/24 followed by chronic suppression with Macrobid 100mg po qd ( if bacteria develops resistance to Macrobid, then stop).
- Infusion sheet was submitted to comp field case manager 01/28/24.
-OK to dc home when home infusion set up.
- Follow-up with me in 1 week.
# Addtiional PMHx:
Spina bifida.
Hydrocephalus status post REGISTERED NURSING PROFESSOR shunt.
Hypertension.
Urinary incontinence with history of multiple artificial ureteral sphincters with subsequent removal.
Hx of augmented bladder construction under the umbilicus (2019) and patient self catheterizes.
Hernia repair.
Hypertension.
Recurrent ESBL- E. coli UTI
ESBL-Ecoli bacteremia x 2
Chief Complaint
-: UTI
Subjective / Review of Systems
Feels better.
Vital Signs / Physical Exam
Vital Signs
Vital Signs
Temp Pulse Resp BP Pulse Ox
98.6 F 63 16 101/63 98
01/29/24 08:11 01/29/24 09:07 01/29/24 08:11 01/29/24 09:07 01/29/24 08:11
Physical Exam
Constitutional: No Acute Distress and Comfortable
Genito-Urinary: Negative CVA Tenderness
Neurological: AO x 3
Objective Data
Lab Data
Lab Results
01/28/24 06:01
01/28/24 06:01
Estimated Creat Clear 91 ml/min 01/28/24 06:01
Total Bilirubin 0.5 mg/dl (0.2-1.3) 01/27/24 16:07
AST 20 U/L (17-59) 01/27/24 16:07
ALT 20 U/L (0-50) 01/27/24 16:07
Alkaline Phosphatase 71 U/L (38-126) 01/27/24 16:07
Most recent labs reviewed.
Micro Results:
01/27/24 20:50 Blood Culture - Preliminary
Blood/Venous No Growth in 24 hours- Final report to follow
01/27/24 21:08 Blood Culture - Preliminary
Blood/Venous No Growth in 24 hours- Final report to follow
01/24/24 CT a/p: No acute findings within the abdomen or pelvis. No evidence for nephrolithiasis or objective uropathy. Postoperative findings compatible with prior right hemicolectomy with anastomosis within the right upper quadrant. Moderate
amount stool within the proximal colon.
Care Review
Plan reviewed with: Physician (Dr. Herrera)
[2024-01-29] MEDS: XANAX 0.25 MG PO (11:48)
--- NOTE | 2024-01-29 12:04 | PTCARENOTE ---
1148 prn xanax given to patient pre medication to calm anxiety before Midline insertion
--- NOTE | 2024-01-29 15:18 | PN.CDI ---
CDI
- -
CDI:
Physician Documentation Request
Admit Date: 01/27/24 22:32
Dear Doctor Javier,
Please review the following and provide your response in the progress notes.
Clinical Indicators:
Pt admitted with complicated UTI 2/2 ESBL Ecoli
Documented in the record, ' ..neurogenic bladder (with self-catheterization every 3 hours),..Chronic Urinary Retention secondary to Neurogenic Bladder Continue intermittent straight cath...'
Please clarify the relationship between these conditions:
Yes, _UTI__ is related to/associated with/due to __Intermittent self cathing _.
No, __UTI_ is not related to/associated with/due to Intermittent self cathing ___ but it is due to ___. (Please specify)
Unable to determine
Use of terms such as suspected, likely, concern for, or probable (associated with a specific diagnosis that is being evaluated, monitored, or treated as if it exists) are acceptable and can be coded in the inpatient setting, when documented at the
time of discharge.
Thank you,
Gladys Mccabe RN
CDI Specialist
[facility]
Please use your independent medical judgment in providing your response.
[2024-01-29 16:00] VITALS: BP 93/59
--- NOTE | 2024-01-29 16:26 | CM ---
Patient will discharge to home with IV/AB. [facility] has been notified and has cared for patient in the past. [facility] liaison will meet with patient and parents on 01/30/24 @ 12:00N to re-educate and review the administration of medication.
Midline has been placed on this date. Report faxed to [facility].
[2024-01-29] MEDS: FLUSH (NSS) 2 FLUSH IV ×2 (21:01→21:05)
[2024-01-29] MEDS: INVANZ 60 MG IV (21:05)
[2024-01-29 23:22] VITALS: BP 105/62
[2024-01-30] MEDS: DILAUDID 0.5 MG IV ×2 (00:12→04:46)
[2024-01-30] MEDS: FLUSH (NSS) 2 FLUSH IV ×2 (00:13→04:47)
--- NOTE | 2024-01-30 04:55 | PTCARENOTE ---
Patient continues to self cath via artificial urinary sphincter. See bladder cath and straight cath for volumes. Patient requesting Dilaudid 0.5mg IV for left flank pain 04/22. He states Toradol does not bring pain relief. He was sleeping after
Dilaudid administration.
[2024-01-30 08:00] VITALS: BP 121/62
--- NOTE | 2024-01-30 08:52 | W.PN.HOSP.TC ---
Addendum entered and electronically signed by Aide Herrera MD 01/30/24 14:25:
Yes, _UTI__ is related to/associated with/due to __Intermittent self cathing _
Original Note:
Today's Communication/Plan
-
DC home today post home IV abx teaching
Assessment / Plan
Assessment / Plan
Patient is a 38 y/o male with a past medical history of spina bifida, hypertension, neurogenic bladder (with self-catheterization every 3 hours), and prior urinary tract infections who presents for left flank pain that began on Saturday. He was
evaluated in the emergency department on Saturday and was prescribed Bactrim. Additionally, he was prescribed colchicine for gout in his left foot and states that this pain has resolved.
CT A/P FROM prior ER visit 01/24/24
IMPRESSION:
1. No acute findings within the abdomen or pelvis.
2. No evidence for nephrolithiasis or objective uropathy.
3. Nonspecific mild splenomegaly. No focal splenic lesions.
4. Postoperative findings compatible with prior right hemicolectomy with anastomosis within the right upper quadrant. Moderate amount stool within the proximal colon.
5. Additional findings above.
Complicated Urinary Tract Infection secondary to ESBL E. Coli
-Consult Infectious Disease
-Continue Ertapenem through 02/06/24
-post midline; plan to DC home today post home infusion teaching. post IV abx start Macrobid
-add on IV toradol PRN pain to better help with inflammation - patient told he can take advil/motrin at home (with food)
Chronic Urinary Retention secondary to Neurogenic Bladder
-Continue intermittent straight cath
Left lower back pain likely MSK from bed
-toradol as above
-heat pack
Essential Hypertension
-Continue lisinopril and metoprolol
Hx Spina Bifida with DISPATCHER SERVICE OR WORK shunt
DVT proph: Lovenox
Code Status: Full Code
Anticipated Discharge: Today
Subjective/Interval History
-
Date of Service: January 30, 2024
patient states pain is a little bit improved
he's been up and walking around
Objective Data
-
Vital Signs:
Vital Signs
Temp Pulse Resp BP Pulse Ox
97.9 F 61 15 121/62 96
01/30/24 08:00 01/30/24 08:00 01/30/24 08:00 01/30/24 08:00 01/30/24 08:00
I&O
01/29/24 01/30/24 01/31/24
06:59 06:59 06:59
Intake Total 1680 / 1680 1720 / 1720
Output Total 200 / 200 400 / 400
Balance 1480 / 1480 1320 / 1320
Review of Systems
-
History Source: Patient
All other systems: Reviewed and negative
Physical Exam
-
General: No Apparent Distress
HEENT: Moist Mucous Membranes
Respiratory: Clear to Auscultation
Cardiac: Regular Rhythm and S1/S2
GI: Soft and Nondistended
Musculoskeletal: Other (left CVA tenderness, some tenderness left lower back )
Skin: Negative Rash
Neuro: AO x 3
Psych: Calm
Data Reviewed
-
Diagnostic Radiology: Report Reviewed by me
Labs: Labs Reviewed by me
--- NOTE | 2024-01-30 08:57 | W.DS.TRANS ---
DC Summary - Field Service Technician
-
Discharge Instructions:
Discharge Diagnosis/Procedures ESBL urinary tract infection
Diet Regular
Activity As tolerated
Driving Restrictions As prior to admission
Bathing Restrictions None
Instructions:
Stand-Alone Forms:
Changes to Home Medications: Yes
Discharge Medications:
DC Medications w/original date entered in [employer]
lisinopril 10 mg tablet 10 mg PO DAILY Blood pressure 05/14/21
alprazolam 0.25 mg tablet 0.25 mg PO Q6HPRN PRN ANXIETY 12/27/22
ferrous sulfate 325 mg (65 mg iron) tablet 325 mg PO DAILY Supplement 03/13/23
metoprolol succinate 25 mg tablet,extended release 24 hr 25 mg PO DAILY Heart Failure 06/06/23
oxycodone 5 mg tablet 5 mg PO Q8H PRN moderate to severe pain 01/27/24
tramadol 50 mg tablet 50 mg PO Q8H PRN moderate pain 01/27/24
colchicine 0.6 mg tablet 0.6 mg PO DAILY Gout 01/28/24
Ertapenem [Invanz] 1,000 mg 120 mls/hr IV Q24H 01/30/24
nitrofurantoin monohydrate/macrocrystals 100 mg capsule (Macrobid) 100 mg PO DAILY #30 caps 01/30/24
Home Medication Changes
STOP BACTRIM
You are prescribed home IV antibiotic infusion therapy with IV Ertapenem to take once daily through 02/06/24.
After you complete this IV antibiotic course (on 02/06) Start taking Macrobid 100mg daily for prevention.
Pending Results: No
[2024-01-30] MEDS: COLCHICINE 0.599999999999999978 MG PO (09:16)
[2024-01-30] MEDS: ZESTRIL 10 MG PO (09:16)
[2024-01-30] MEDS: FEOSOL 325 MG PO (09:16)
[2024-01-30] MEDS: TOPROL XL 25 MG PO (09:16)
[2024-01-30] MEDS: TYLENOL 650 MG PO (09:23)
[2024-01-30] MEDS: TORADOL 15 MG IV (09:24)
--- NOTE | 2024-01-30 10:35 | W.PN.ID1 ---
Date of Service
Date of Service: January 30, 2024
Today's Communication
DC home today.
Assessment / Plan
# Recurrent symptomatic UTI with ESBL-E. coli
(Left flank pain is not due to pyelo. No CVA tenderness on exam.
# hx augmented bladder and pt self-catherizes via umbilicus
-Blood cx's neg to date
- Continue Ertapenem 1g IV q24 through 02/06/24 followed by chronic suppression with Macrobid 100mg po qd ( if bacteria develops resistance to Macrobid, then stop).
- dc home after [facility] nurse teaching.
- Follow-up with me in 1 week.
# Additional PMHx:
Spina bifida.
Hydrocephalus status post RAG BALER shunt.
Hypertension.
Urinary incontinence with history of multiple artificial ureteral sphincters with subsequent removal.
Hx of augmented bladder construction under the umbilicus (2018) and patient self catheterizes.
Hernia repair.
Hypertension.
Recurrent ESBL- E. coli UTI
ESBL-Ecoli bacteremia x 2
Chief Complaint
-: UTI
Subjective / Review of Systems
Still with left flank pain.
Vital Signs / Physical Exam
Vital Signs
Vital Signs
Temp Pulse Resp BP Pulse Ox
97.9 F 61 15 121/62 96
01/30/24 08:00 01/30/24 09:16 01/30/24 08:00 01/30/24 09:16 01/30/24 08:00
Physical Exam
Constitutional: No Acute Distress
Pulmonary: Clear
Genito-Urinary: Negative CVA Tenderness
Neurological: AO x 3
Objective Data
Lab Data
Lab Results
01/28/24 06:01
01/28/24 06:01
Estimated Creat Clear 91 ml/min 01/28/24 06:01
Total Bilirubin 0.5 mg/dl (0.2-1.3) 01/27/24 16:07
AST 20 U/L (17-59) 01/27/24 16:07
ALT 20 U/L (0-50) 01/27/24 16:07
Alkaline Phosphatase 71 U/L (38-126) 01/27/24 16:07
Most recent labs reviewed.
Micro Results:
01/27/24 20:50 Blood Culture - Preliminary
Blood/Venous No Growth in 48 hours- Final report to follow
01/27/24 21:08 Blood Culture - Preliminary
Blood/Venous No Growth in 48 hours- Final report to follow
01/24/24 CT a/p: No acute findings within the abdomen or pelvis. No evidence for nephrolithiasis or objective uropathy. Postoperative findings compatible with prior right hemicolectomy with anastomosis within the right upper quadrant. Moderate
amount stool within the proximal colon.
[2024-01-30 11:54] VITALS: BP 106/62
[2024-01-30] MEDS: ROXICODONE 5 MG PO (11:55)
--- NOTE | 2024-01-30 12:41 | W.DCSUMMARY ---
Discharge Summary
Discharge Data
Date of Admission: 01/27/24
Date of Discharge: 01/30/24
-
Pending Results: No
Hospital Course
Discharging Physician : Dr. Aide Herrera
Disposition : Home
Primary care physician : Dr. Harmeet Obregon
Principal Discharge diagnosis : ESBL Urinary Tract Infection
Hospital Course :
Patient is a 38 y/o male with a past medical history of spina bifida, hypertension, neurogenic bladder (with self-catheterization every 3 hours), and prior urinary tract infections who presents for left flank pain that began on Saturday. He was
evaluated in the emergency department on Saturday and was prescribed Bactrim. He was called back to the ER when urine culture showed ESBL. Patient was started on IV Ertapenem and admitted to medicine with ID consulting. Blood cultures remained
negative. A mid-line is placed with home IV abx infusion set up to complete 10 days and then start Macrobid 100mg PO QD for prophylaxis. Follow up appointment arranged in one week with Dr. Tariq.
Patient's flank pain was still present but improving on time of discharge. Reassuring that CT done during ER visit prior to admission showed no acute pathology. US obtained which showed small renal cyst.
Patient is told he can take tylenol and motrin (with food) as needed for pain and he will follow up closely with outpatient physicians.
Time spent on discharge was 31 minutes.
Important imaging findings :
RENAL US 01/30/24
IMPRESSION:
Small simple left renal cyst. New. Otherwise unremarkable exam
Procedure findings :
Discharge Plan
-
Patient Disposition: Home with Home Care
Discharge Diagnosis/Procedures: ESBL urinary tract infection
Diet: Regular
Activity: As tolerated
Driving Restrictions: As prior to admission
Bathing Restrictions: None
Referrals:
Harmeet Obregon MD [Family Provider] - in less than 1 week
Clau Tariq MD [Active] - 02/06/24 1:30 pm
Additional Discharge Medication Instructions: STOP BACTRIM
You are prescribed home IV antibiotic infusion therapy with IV Ertapenem to take once daily through 02/06/24.
After you complete this IV antibiotic course (on 02/06) Start taking Macrobid 100mg daily for prevention.
Prescriptions:
New
Ertapenem [Invanz] 1000 MG
0.9% Sodium Chloride [Nss] 50 ML
120 mls/hr IV Q24H
Ordered By: Aide Herrera MD
Last Taken: 01/29/24 21:05 60 mls
Rx Instructions:
Administer through 02/06/24
nitrofurantoin monohyd/m-cryst [Macrobid] 100 mg capsule
100 mg PO DAILY Qty: 30 0RF
Rx Instructions:
DO NOT START THIS UNTIL AFTER COMPLETION ERTAPENEM THERAPY
Continued
lisinopril 10 MG tablet
10 mg PO DAILY
alprazolam 0.25 mg tablet
0.25 mg PO Q6HPRN PRN (Reason: ANXIETY)
Patient Comments:
01/27/2024: LAST FILLED 12/30/23, 20 TABS FOR 30 DAYS FROM [id number]
ferrous sulfate 325 mg (65 mg iron) Tablet
325 mg PO DAILY
metoprolol succinate 25 mg Tablet Extended Release 24 Hr
25 mg PO DAILY
tramadol 50 mg tablet
50 mg PO Q8H PRN (Reason: moderate pain)
Patient Comments:
01/27/2024: last filled 01/14/24, 60 tabs for 20 days from [facility]
oxycodone 5 mg tablet
5 mg PO Q8H PRN (Reason: moderate to severe pain)
Patient Comments:
01/27/2024: last filled 01/24/24, 8 tabs for 3 days from [facility]
colchicine 0.6 mg tablet
0.6 mg PO DAILY
Rx Instructions:
1.2mg PO once, then 0.6mg PO 1hr after; continue 0.6mg daily prn pain
Discontinued
sulfamethoxazole-trimethoprim [Bactrim DS] 800-160 mg tablet
1 tab PO BID
Discharge Orders:
Discharge Patient (As Directed); Ordered 01/30/24
Ordered By: Aide Herrera
Discharge Date and Time
Discharge Date/Time: 01/30/24 15:15
Print Language: CITIZEN OF [place]
--- NOTE | 2024-01-30 14:35 | CM ---
Reviewed the chart notes. [facility] Liaison was in to educate the patient and his father on IV abx. The patient's father will transport the patient home. CM continues to be available to patient/family and is monitoring medical plan for
needs at discharge.
Plan: Discharge to home with home IV abx provided by [facility].
== END 2024-01-30 15:15 | disposition home health service (06) | DRG 699 ==
LOC: 2 NORTH 22:32
PROVIDERS: Emergency Medicine; Physician Assistant Medical; ADMITTING PHYSICIAN Hospitalist; ATTENDING PHYSICIAN Student in an Organized Health Care Education/Training Program; CONSULT PHYSICIAN Internal Medicine Infectious Disease; EMERGENCY PHYSICIAN Emergency Medicine; FAMILY PHYSICIAN Family Medicine
DX: T83.518A Infection and inflammatory reaction due to other urinary catheter, initial encounter (principal); N39.0 Urinary tract infection, site not specified; Z16.12 Extended spectrum beta lactamase (ESBL) resistance; Q05.4 Unspecified spina bifida with hydrocephalus; Y84.6 Urinary catheterization as the cause of abnormal reaction of the patient, or of later complication, without mention of misadventure at the time of the procedure; N31.9 Neuromuscular dysfunction of bladder, unspecified; R33.8 Other retention of urine; I10 Essential (primary) hypertension; N28.1 Cyst of kidney, acquired; B96.20 Unspecified Escherichia coli [E. coli] as the cause of diseases classified elsewhere; Z87.440 Personal history of urinary (tract) infections; Z98.2 Presence of cerebrospinal fluid drainage device
CPT/HCPCS: 76775; 80048; 80053; 85025; 85027; 87040; 96365; 96366; 99285; J1335

== ENCOUNTER 2024-02-05 19:47 | Emergency (ER) | payer BC, SELFPAY ==
[2024-02-05 19:58] VITALS: BP 135/83
[2024-02-05 20:31] VITALS: BMI 25.6
[2024-02-05] MEDS: ROXICODONE 5 MG PO (20:55)
[2024-02-05 21:04] LABS: % Basophils 0.6 % (0-2); % Eosinophils 4.1 % (0-6); % Immature Granulocytes 0.4 % (0-0.5); % Monocytes 7.6 % (1.7-9.3); % Neutrophils 54.3 % (42.2-75.2); Absolute Eosinophils 0.2 10^3/uL (0-0.7); Absolute Lymphocytes 1.8 10^3/uL (1.2-3.4); Absolute Monocytes 0.4 10^3/uL (0.1-0.6); Hematocrit 26.7 % (39.0-52.0); Hemoglobin 9.6 g/dL (13.0-18.0); Mean Corpuscular Hgb 28.5 pg (27.0-31.0); Mean Corpuscular Volume 79.2 fL (80.0-94.0); Mean Platelet Volume 9.3 fL (7.4-10.4); Nucleated Red Blood Cells % 0 % (-); Platelet Count 236 10^3/uL (130-400); Red Blood Cell Count 3.37 10^6/uL (4.70-6.10); Red Cell Dist. Width 13.4 % (11.5-14.5); White Blood Cell Count 5.4 10^3/uL (4.8-10.8)
[2024-02-05 21:18] LABS: Blood Urea Nitrogen 14 mg/dl (9-20); Calcium 9.9 mg/dl (8.4-10.2); Carbon Dioxide 26 mmol/L (22-30); Chloride 106 mmol/L (98-107); Estimated Creatinine Clearance 101 ml/min; Glucose 86 mg/dl (70-99); Potassium 4.3 mmol/L (3.5-5.1); Sodium 139 mmol/L (135-145); eGFR > 60.00
--- NOTE | 2024-02-05 21:52 | ED.GENMED ---
History of Present Illness
General
Chief Complaint: Flank Pain
Source: patient
Exam Limitations: none
Time Seen by Provider: 02/05/24 20:01
Nursing documentation reviewed up to this point in time: agreed with
Travel History
Have you had any contact with someone who has COVID-19?: No
Do you have any symptoms of coronavirus? Fever > 100 degrees, chills, cough, shortness of breath, sore throat, loss of taste or smell, muscle aches, or headache?: No
History of Present Illness
History of Present Illness:
Patient is a 38 yo male with PMH of spina bifida, hydrocephalus, prosthetic bladder sphincter in his umbilicus, neurogenic bladder for which he self catheterizes every 2-3 hours, recent admission for ESBL urinary tract infection, currently receiving
ertapenem via a midline in his right upper extremity, who presents to the emergency department for evaluation of left flank pain. Pt reports he was complaining of left flank pain during his recent admission. Pt had CT scan of his abdomen and
pelvis and renal ultrasound at that time, which did not find an etiology of the patient's pain. Pt reports that the pain was initially improving at home, but then seemed to get worse over the past day or two, making it difficult for him to sleep.
Pt denies fevers, chills, nausea, vomiting. Pt denies any hematuria, dark, or foul smelling urine. Pt reports compliance with his ertapenem. Pt notes he has an appointment with infectious disease tomorrow. Pt reports he has not been taking
medication for his pain at home as he does not have any prescription pain medications, and Tylenol and ibuprofen do not seem to help.
Past History
Past History
ED Past Medical History: Other (Spina bifida, hydrocephalus, UTIs, microscopic colitis) and Other (Sepsis secondary to UTI with E. coli ESBL May 2021)
ED Past Surgical History: Other (CLAIM ADMINISTRATOR shunt, spinal surgery, hernia repair, prosthetic bladder sphincter)
Social History
Tobacco: Non-smoker
Alcohol: Occasional
Drug: None
Personal: Single
Living: with family
Employment: Employed
Family History
Family History: Other (Noncontributory)
Review of Systems
Review of Systems
All Other Systems: ROS reviewed and negative except as documented in HPI and ROS
Constitutional: Reports no symptoms; Denies fever or chills
EENT: Reports no symptoms
Respiratory: Reports no symptoms
Cardiac: Reports no symptoms
ABD/GI: Reports abdominal pain (left flank pain); Denies nausea or vomiting
: Reports no symptoms; Denies bleeding
Musculoskeletal: Reports no symptoms
Skin: Reports no symptoms
Neurological: Reports no symptoms
Endocrine: Reports no symptoms
Hematologic/Lymphatic: Reports no symptoms
Psychiatric: Reports no symptoms
Phy Exam
General Physical Exam
General Presentation: well appearing and no apparent distress
General Skin: warm and dry
General Habitus: normal
General Mental: alert
General Hydration: appears well hydrated
ENT Exam
ENT Exam: EOMI, pharynx normal, neck supple and normocephalic
Eye Exam
Eye Exam: PERRL, cornea clear and conjunctiva normal
Cardiovascular Exam
Cardiovascular Exam: regular rate/rhythm, no edema, no murmur and normal peripheral pulses
Pulmonary Exam
Pulmonary Exam: lungs clear, no respiratory distress, no rales, no crackles, no rhonchi, no stridor, no wheezing and no cough
Gastrointestinal Exam
Gastrointestinal Exam: normal bowel sounds, soft, no organomegaly, no pulsatile mass, non distended and tender (left flank ttp, no CVA tenderness bilaterally)
Neurological Exam
Neurological Exam: alert, oriented x3, no motor deficits and speech normal
Musculoskeletal Exam
Musculoskeletal Exam: full ROM and no edema
Skin Exam
Skin Exam: normal color, warm/dry, no rash and no petechia
Psychiatric Exam
Psychiatric Exam: normal mood/affect
Course
Orders/Labs/Results
Orders:
Orders
02/05/24 20:35
Oxycodone [Roxicodone] 5 mg PO NOW STA
02/05/24 20:39
Basic Metabolic Panel Urgent
Complete Blood Count/With Diff Urgent
02/05/24 20:51
Urine Culture Urgent
MARIE Source: Urine
Specimen Description:
Obtained by: Straight Cath
Date Specimen was Collected: 02/05/24
Time Specimen was Collected: 20:50
Abnormal Lab Results
02/05/24
20:39
RBC 3.37 L 10^6/uL
(4.70-6.10)
Hgb 9.6 L g/dL
(13.0-18.0)
Hct 26.7 L %
(39.0-52.0)
MCV 79.2 L fL
(80.0-94.0)
02/05/24 20:39
02/05/24 20:39
Vital Signs
Initial and Last Documented VS:
Initial Vital Signs
Temp Pulse Resp BP Pulse Ox
98.4 F 82 20 135/83 99
02/05/24 19:58 02/05/24 19:58 02/05/24 19:58 02/05/24 19:58 02/05/24 19:58
Last Documented Vital Signs
Temp Pulse Resp BP Pulse Ox
98.4 F 82 20 135/83 99
02/05/24 19:58 02/05/24 19:58 02/05/24 19:58 02/05/24 19:58 02/05/24 19:58
*Critical Care Note
Total Time (30-74mins, 75-104mins- exclusive of procedures): Not Applicable
Update Note
Update Note:
38 yo male with PMH as noted including prosthetic urinary bladder in his umbilicus, frequent UTIs with recent admission for ESBL UTI, currently on ertapenem at home who presents to the emergency department for worsening left flank pain over the past
day. Pt denies fevers, chills, nausea, vomiting. On arrival, VSS, afebrile without antipyretics taken prior to arrival. On exam, pt is well-appearing and in NAD, with mild left flank ttp, but no CVA tenderness. Labs were obtained and are
nonactionable, pt has no leukocytosis and has normal renal function. Previous CT reviewed from one week ago, pt did not have any kidney stones at this time, it is unlikely that he formed a stone in this short period, do not feel that repeat imaging
is indicated, ED attending is in agreement. CT did demonstrate moderate constipation, which could be contributing to his pain. Pain could also be musculoskeletal in etiology. Patient is safe for discharge to home with infectious disease follow-up
as scheduled. Pt advised to complete his course of antibiotics and provided with a few tabs of analgesia. Pt educated on return precautions, he expressed understanding of the plan and agreed.
ED Attending Note
-
Portions of this chart may have been created with voice recognition software.� Occasional wrong word or��sound alike� substitutions may have occurred due to the inherent limitations of voice recognition software.
Discharge Plan
Departure
Patient Disposition: Home (Routine Discharge)
Date of Disposition: 02/05/24
Time of Disposition: 21:52
Patient with high blood pressure during this ER visit?: Yes
Condition: Good
Covid-19: Not Applicable
Discharge Problem:
Flank pain
Instructions: Flank Pain (DC)
Prescriptions:
New
oxycodone 5 mg tablet
5 mg PO Q8H PRN (Reason: Pain) Qty: 6 0RF
Discontinued
tramadol 50 mg tablet
50 mg PO Q8H PRN (Reason: moderate pain)
Patient Comments:
01/27/2024: last filled 01/14/24, 60 tabs for 20 days from [facility]
oxycodone 5 mg tablet
5 mg PO Q8H PRN (Reason: moderate to severe pain)
Patient Comments:
01/27/2024: last filled 01/24/24, 8 tabs for 3 days from [facility]
No Action
lisinopril 10 MG tablet
10 mg PO DAILY
alprazolam 0.25 mg tablet
0.25 mg PO Q6HPRN PRN (Reason: ANXIETY)
Patient Comments:
01/27/2024: LAST FILLED 12/30/23, 20 TABS FOR 30 DAYS FROM [facility]
ferrous sulfate 325 mg (65 mg iron) Tablet
325 mg PO DAILY
metoprolol succinate 25 mg Tablet Extended Release 24 Hr
25 mg PO DAILY
colchicine 0.6 mg tablet
0.6 mg PO DAILY
Rx Instructions:
1.2mg PO once, then 0.6mg PO 1hr after; continue 0.6mg daily prn pain
Ertapenem [Invanz] 1000 MG
0.9% Sodium Chloride [Nss] 50 ML
120 mls/hr IV Q24H
Ordered By: Aide Herrera MD
Last Taken: Unknown
Rx Instructions:
Administer through 02/06/24
nitrofurantoin monohyd/m-cryst [Macrobid] 100 mg capsule
100 mg PO DAILY Qty: 30 0RF
Rx Instructions:
DO NOT START THIS UNTIL AFTER COMPLETION ERTAPENEM THERAPY
Referrals:
Harmeet Obregon MD [Family Provider] - Follow up in 2-3 days
Activity Restrictions/Additional Instructions:
You were seen in the emergency department for left flank pain. Your blood work did not show any dangerous abnormalities. You are being discharged to home. Please complete your antibiotics as prescribed. You may take ibuprofen or Tylenol for
pain. You may take the oxycodone if needed for severe pain. Please follow up with the infectious disease doctors as scheduled tomorrow. Please return to the emergency department for vomiting, fever greater than 100.4F, blood in the urine, or for
any other worsening or concerning symptoms.
Interventions
Interventions:
*Risk Screen - Suicide Last Done: 02/05/24 19:58
*General Assessment Last Done: 02/05/24 19:58
*Neglect/Abuse Screening Last Done: 02/05/24 19:58
ED- Fall Risk Assessment Last Done: 02/05/24 20:08
*ED COVID-19 Vaccine History Last Done: 02/05/24 20:08
*Nursing Disposition Last Done: 02/05/24 22:38
TJ-Yaloft-Qszfznfkke Assessment Last Done: 02/05/24 20:23
ED-Male Genitourinary Assessment Last Done: 02/05/24 20:23
Discharge Date and Time
Discharge Date/Time: 02/05/24 22:38
Print Language: GE[place]GI[place]
--- NOTE | 2024-02-05 22:03 | VATNOTE ---
PT TO ED WITH 4FR SL RUE ML INSERTED 01/29. DRSG C/D/I AND REDRESSED 02/04 BY [facility] . ML FLUSHES WELL BUT HAS NO BR WHICH PT CONFIRMS HAS BEEN THE CASE. PCN AWARE OF ML STATUS.
== END 2024-02-05 22:38 | disposition home or self-care (01) ==
LOC: EMR 19:47
PROVIDERS: Physician Assistant Medical; EMERGENCY PHYSICIAN Student in an Organized Health Care Education/Training Program; FAMILY PHYSICIAN Family Medicine
DX: R10.9 Unspecified abdominal pain (principal); R03.0 Elevated blood-pressure reading, without diagnosis of hypertension; Q05.4 Unspecified spina bifida with hydrocephalus
CPT/HCPCS: 99283; 80048; 85025; 87086

== ENCOUNTER 2024-03-01 18:36 | Emergency (ER) | payer BC, SELFPAY ==
[2024-03-01 18:46] VITALS: BP 155/87
[2024-03-01 20:33] VITALS: BP 149/92
[2024-03-01 20:37] VITALS: BMI 26.0
[2024-03-01] MEDS: MORPHINE SULFATE 2 MG IV (20:38)
[2024-03-01] MEDS: ZOFRAN 4 MG IV ×2 (20:38→22:48)
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
[2024-03-01] MEDS: NSS 500 IV (20:39)
--- NOTE | 2024-03-01 22:02 | EDRN ---
Patient requesting more pain medication states all the moving around hurt his head, spoke with Monse valle NP who wants to hold off on more pain meds for now.
--- NOTE | 2024-03-01 22:52 | EDRN ---
Patient incident response lead summers sating nauseated, mesd ordered and given to patient asking again about pain meds will inform TRENA Shea
--- NOTE | 2024-03-01 23:40 | EDRN ---
Patient questioned documents examiner summers again about pain medication, TRENA segal was informed, states patient will be discharged and needs to follow up with his doctor, will update patient.
[2024-03-01] MEDS: TORADOL 15 MG IV (23:44)
--- NOTE | 2024-03-01 23:49 | EDRN ---
Patient medicated for pain, TRENA Shea in at bedside going over CT results and plan for discharge after patient ambulates.
[2024-03-01 23:50] VITALS: BP 129/88
--- NOTE | 2024-03-02 00:28 | EDRN ---
Patient was able to ambulate with steady gate and no issues or complaints, patient discharged home with dad.
== END 2024-03-02 00:29 | disposition home or self-care (01) ==
LOC: EMR 18:36
PROVIDERS: EMERGENCY PHYSICIAN Emergency Medicine; FAMILY PHYSICIAN Family Medicine
DX: R51.9 Headache, unspecified (principal); V18.0XXA Pedal cycle driver injured in noncollision transport accident in nontraffic accident, initial encounter; I10 Essential (primary) hypertension; Q05.9 Spina bifida, unspecified; Z98.2 Presence of cerebrospinal fluid drainage device
CPT/HCPCS: 99285; 96374; 96375 ×2; 96361; 96376; 70360; 70450; 71045; 74018

== ENCOUNTER → 2025-07-09 08:10 | Outpatient (REF) | payer OTHER, SELFPAY | LOC: HWRAD 08:10 | PROVIDERS: ATTENDING PHYSICIAN Student in an Organized Health Care Education/Training Program; FAMILY PHYSICIAN Internal Medicine | DX: N31.9 Neuromuscular dysfunction of bladder, unspecified (principal); R10.0 Acute abdomen | CPT/HCPCS: 74176 ==